=== PATIENT | male | born 1950 | race Caucasian/White ===

== ENCOUNTER 2019-07-25 18:55 | Emergency (ER) | payer MEDICARE, BC ==
[2019-07-25] MEDS ORDERED: Prochlorperazine 10 MG/2 ML SDV IVPUSH ONE (19:07)
--- NOTE | 2019-07-25 19:46 | EDM.PDOC ---
ED HPI GENERAL MEDICAL PROBLEM - General Chief Complaint: General Stated Complaint: MEDICAL [facility]IA [facility] Time Seen by Provider: 07/25/19 19:00 Source of Information: Reports: Patient, EMS, Family History Limitations: Reports: No Limitations - History of Present Illness INITIAL COMMENTS - FREE TEXT/NARRATIVE: 68-year-old male with a history of stroke and pituitary cancer, has had several episodes over the past 2 years of sudden nausea and vomiting and syncope. He has been evaluated twice for this and it is been negative. The family was told that it may happen again, if it does to lie him down but tonight after eating he became nauseated, had an emesis and then felt lightheaded and ill. The family felt scared to lay him down because they saw he was so ill. In route EMS checked his glucose and it was normal. Vitals normalized in route. He became more alert, when EMS arrived at the scene he was still semiconscious and confused. Onset: Sudden Duration: Hour(s): (Within the last hour) Associated Symptoms: Reports: Confusion, Nausea/Vomiting Treatments DRILLING ASSISTANT: Reports: EKG, IV/IO - Related Data Allergies Allergy/AdvReac Type Severity Reaction Status Date / Time No Known Allergies Allergy Verified 07/25/19 19:18 Home Meds: Home Meds Aspirin [Adult Low Dose Aspirin EC] 81 mg PO DAILY 07/25/19 [History] Clopidogrel Bisulfate [Plavix] 75 mg PO DAILY 07/25/19 [History] Finasteride [Proscar] 5 mg PO DAILY 07/25/19 [History] Levothyroxine Sodium [Levo-T] 50 mcg PO DAILY 07/25/19 [History] amLODIPine Besylate [Amlodipine Besylate] 2.5 mg PO DAILY 07/25/19 [History] atorvaSTATin Calcium [Atorvastatin Calcium] 40 mg PO DAILY 07/25/19 [History] Past Medical History Cardiovascular History: Reports: High Cholesterol, Other (See Below) Other Cardiovascular History: hypotesive episodes Genitourinary History: Reports: Neurogenic Bladder, Prostate Disorder, Urinary Incontinence Neurological History: Reports: CVA, Speech Problems Endocrine/Metabolic History: Reports: Diabetes, Type II, Hypothyroidism, Obesity /BMI 30+ Oncologic (Cancer) History: Reports: Brain, Prostate - Past Surgical History Male Surgical History: Reports: Prostate Biopsy Musculoskeletal Surgical History: Reports: Knee Replacement Social & Family History - Tobacco Use Smoking Status *Q: Never Smoker - Caffeine Use Caffeine Use: Reports: None - Recreational Drug Use Recreational Drug Use: No ED ROS GENERAL - Review of Systems Review Of Systems: See Below Constitutional: Reports: Malaise. Denies: Fever, Chills HEENT: Denies: Vision Change Respiratory: Denies: Shortness of Breath Cardiovascular: Denies: Chest Pain GI/Abdominal: Reports: Nausea, Vomiting Skin: Reports: Pallor, Diaphoresis Neurological: Reports: Confusion, Syncope. Denies: Dizziness, Headache ED EXAM, GENERAL - Physical Exam Exam: See Below Exam Limited By: No Limitations General Appearance: Alert, No Apparent Distress Eye Exam: Bilateral Eye: PERRL Respiratory/Chest: No Respiratory Distress, Lungs Clear Cardiovascular: Regular Rate, Rhythm GI/Abdominal: Soft, Non-Tender Extremities: Normal Inspection Neurological: Alert, Oriented Psychiatric: Flat Affect Skin Exam: Warm, Diaphoretic Course - Vital Signs Last Recorded V/S: Last Vital Signs Temp 96.6 F 07/25/19 19:03 Pulse 86 07/25/19 20:24 Resp 12 07/25/19 19:56 BP 116/82 07/25/19 20:24 Pulse Ox 98 07/25/19 19:56 - Orders/Labs/Meds Meds: Medications Discontinued Medications Generic Name Dose Route Start Last Admin Trade Name Yue PRMilla Reason Stop Dose Admin Prochlorperazine Edisylate 5 mg 07/25/19 19:07 07/25/19 19:15 Compazine IVPUSH 07/25/19 19:08 5 mg ONETIME ONE Administration - Re-Assessments/Exams Free Text/Narrative Re-Assessment/Exam: 07/25/19 23:55 Vitals are normal normal, patient continued to be nauseated so was given 5 mg of IV Compazine. A head CT without contrast was ordered which was completely normal. By the time the CT report returned, the patient was back to baseline, ambulated without problem and was comfortable going home. Family also agreed with the plan as this has happened to him before. Departure - Departure Time of Disposition: 20:25 Disposition: Home, Self-Care 01 Clinical Impression: Vasovagal syncope - Discharge Information Instructions: Syncope, [id number] Referrals: PCP,None [Primary Care Provider] - Forms: ED Department Discharge Care Plan Goals: Continue your regular medications, advance diet slowly and activity as tolerated. Return anytime if symptoms recur or you develop other concerns.
--- NOTE | 2019-07-25 20:03 | CRLCT ---
INDICATION: Mental status change TECHNIQUE: CT Head without i.v. contrast. COMPARISON: None FINDINGS: CSF space: Unremarkable for age. Brain: A small chronic lacunar infarct is present in the posterior limb of the left internal capsule. Moderate diffuse cortical atrophy is noted. No mass-effect or midline shift is seen. Calvarium: The visualized paranasal sinuses are well aerated. The mastoid air cells are clear. The visualized orbits are grossly unremarkable. Patient is status post a right pterional craniotomy. IMPRESSION: 1. No evidence of acute infarction, intracranial hemorrhage, or mass-effect seen. Dictated by Trace Lawton MD @ 07/25/2019 7:58:55 PM Please note that all CT scans at this facility use dose modulation, iterative reconstruction, and/or weight-based dosing when appropriate to reduce radiation dose to as low as reasonably achievable. Dictated by: Trace Lawton MD @ 07/25/2019 20:02:16 (Electronically Signed)
== END 2019-07-25 20:25 | disposition home or self-care (01) ==
LOC: JP.ED 18:55
DX: R55 Syncope and collapse (principal); E11.9 Type 2 diabetes mellitus without complications; E78.00 Pure hypercholesterolemia, unspecified; E03.9 Hypothyroidism, unspecified; E66.9 Obesity, unspecified; Z68.32 Body mass index [BMI] 32.0-32.9, adult; Z86.73 Personal history of transient ischemic attack (TIA), and cerebral infarction without residual deficits; Z79.82 Long term (current) use of aspirin; Z79.02 Long term (current) use of antithrombotics/antiplatelets; Z79.899 Other long term (current) drug therapy
CPT/HCPCS: 70450; 96374; 99283; 99284; J0780